=== PATIENT | male | born 1960 | race Caucasian/White ===

== ENCOUNTER 2019-05-18 20:49 | Inpatient (IN) | payer OTHER ==
[~2019-05-18 20:49] MED LIST: ISOVUE-370 76%-LOCM 1 ML ONE
[2019-05-18] MEDS ORDERED: Norepinephrine 8 MG in Dextrose 5% in Water 242 ML IVPB PRN (21:09)
[2019-05-18 21:10] LABS: #Eosinphils 0.1 thou/uL (0.0-0.7); #Lymphocytes 1.5 thou/uL (1.20-3.40); #Monocytes 0.9 thou/uL (0.11-0.59); #Neutrophils 10.2 thou/uL (1.40-6.50); %Basophils 0.4 % (0.0-1.0); %Eosinophils 0.9 % (0.0-10.0); %Lymphocytes 12.1 % (21.0-51.0); %Monocytes 6.9 % (0.0-10.0); %Neutrophils 79.7 % (42.0-75.0); Hemoglobin 18.5 g/dL (14.0-18.0); Mean Corpuscular HGB CONC 34.4 g/dL (32.0-36.0); Mean Platelet Volume 8.6 fL (7.4-10.4); Platelet Count 247 thou/uL (130-400); RBC Distribution Width 11.9 % (11.5-14.5); Red Blood Cell (RBC) Count 5.78 mill/uL (4.70-6.10); White Blood Cell (WBC) Count 12.8 thou/uL (4.8-10.8)
--- NOTE | 2019-05-18 21:13 | RAD ---
Portable frontal chest radiograph: 05/18/2019 COMPARISON: None HISTORY: Hanging FINDINGS: Supine imaging limits assessment for pneumothorax and pleural fluid. There is gaseous distention of the stomach. Endotracheal tube projects over the tracheal air column, terminating at the level of the clavicular heads. There is dense opacity in the perihilar and infrahilar region on the right suggesting infiltrate or v olume loss. Left lung appears clear. IMPRESSION: Endotracheal tube in place. Increased density in the right perihilar region and infrahila r region for which follow-up imaging is advised.
[2019-05-18 21:22] LABS: Actual Bicarbonate (HCO3a) 18.2 mEq/L (22-28); Analyzer IN Cardio ER; Base Excess (BEa) -5.9 mEq/L (-2.0 to +3.0); CO2 Tension 32.5 mmHg (35.0-45.0); Calcium, Ionized 1.09 mmol/L (1.12-1.30); Carboxyhemoglobin (COHb) 0.2 gm% (0.0-3.0); Hemoglobin (Hb) 16.9 g/dL (14.0-18.0); O2 Tension (PaO2) 99.8 mmHg (80.0-100.0); Potassium - ABG Lab 3.25 mmol/L (3.70-5.30); pH, Arterial 7.37 (7.35-7.45)
--- NOTE | 2019-05-18 21:23 | CT ---
Head CT without contrast: 05/18/2019 COMPARISON: None HISTORY: Hanging TECHNIQUE: Axial CT imaging at 5 mm intervals from vertex through skull base without contrast FINDINGS: The imaged paranasal sinuses and mastoid air cells are well aerated. No displaced calvarial fracture is seen. No intracranial hemorrhage, midline shift, mass effect, or ventricular enlargement. IMPRESSION: No acute findings. Follow-up MRI may be beneficial if there is clinical concern for anoxi a.
[2019-05-18 21:24] LABS: ALV-art Gradient 287.375 (0-20); Puncture Site LRA
--- NOTE | 2019-05-18 21:27 | CT ---
Cervical spine CT without contrast: 05/18/2019 COMPARISON: None HISTORY: Pain TECHNIQUE: Axial CT imaging at 2.5 mm intervals through the cervical spine with coronal and sagittal reformatted imaging FINDINGS: The C1 ring is intact. The dens, occipital condyles, atlantoaxial interspace, cervicothorac ic junction, and craniocervical junction demonstrate no acute findings. There is prominent degenerative change at the atlantoaxial interspace. There is right-sided facet curt nt fusion at C2-3. There is disc space narrowing with degenerative endplate change and posterior osteophyte formation at C5-C6 and C6-7. No acute fracture or evidence of dislocation is seen involving the cervical spine. Endotracheal tube present. Imaged lung apices demonstrate no acute findings. IMPRESSION: Cervical spine degenerative change with no acute fracture or evidence of dislocation. Results of head CT and cervical spine CT called to Dr. Alaniz at 9:24 PM 05/18/2019.
--- NOTE | 2019-05-18 21:34 | CT ---
CT angiogram neck: 05/18/2019 COMPARISON: None HISTORY: Hanging TECHNIQUE: Axial CT imaging at 1.25 mm intervals through the neck with IV contrast using CT angiogram protocol. Coronal and sagittal 3-D reformatted imaging obtained. FINDINGS: The visualized brain parenchyma appears grossly unremarkable. The imaged paranasal sinuses and mastoid air cells appear well aerated. The retroantral fat and the parapharyngeal fat is clear bilaterally. The parotid glands and submandibular glands appear grossly unremarkable. Endotracheal tube present. There is fluid within the posterior nasopharynx. The hyoid bone, thyroid cartilage, and cricoid carti parrish appears grossly unremarkable as does the thyroid gland. There is endotracheal debris adjacent to the endotracheal tube distally. There is mild increased density in the posterior medial right upper lobe. The origin of the innominate artery, right subclavian artery, right common carotid artery, left subcl saloni artery, and left common carotid artery unremarkable. Bilateral vertebral arteries are patent. On the basis of NASCET criteria, there is no hemodynamically significant stenosis involving the commo n carotid artery or internal carotid artery on either side. No lymphadenopathy is noted within the neck. No acute osseous abnormality. IMPRESSION: Arterial structures of the neck are patent. Results called to Dr. Alaniz at 9:30 PM 05/18.
[2019-05-18] MEDS ORDERED: fentaNYL Citrate/PF 2,000 MCG in Sodium Chloride 0.9% 60 ML IV SCH (21:39)
[2019-05-18 21:43] LABS: INR-International Normal Ratio 1.2; PTT 29.2 SEC (22.9-36.1); Prothrombin Time 14.8 SEC (12.0-14.7)
[2019-05-18 21:55] LABS: ALT (SGPT) 52 U/L (8-55); AST (SGOT) 50 U/L (5-34); Albumin 3.5 g/dL (3.5-5.0); Alkaline Phosphatase 89 U/L (40-150); Anion Gap 20 mmol/L (10-20); BUN (Urea Nitrogen) 16 mg/dL (8.4-25.7); Bilirubin, Total 0.4 mg/dL (0.2-1.2); Calc. Creatinine Clearance 0 mL/min (70-130); Calcium 8.8 mg/dL (7.8-10.44); Carbon Dioxide 10 mmol/L (22-29); Chloride 108 mmol/L (98-107); Estimated GFR-MDRD 57; Globulin 3.3 g/dL (2.4-3.5); Glucose 152 mg/dL (70-105); Lipase 67 U/L (8-78); Potassium 3.7 mmol/L (3.5-5.1); Protein, Total 6.8 g/dL (6.0-8.3); Sodium 134 mmol/L (136-145)
--- NOTE | 2019-05-18 22:04 | HP ---
CHIEF COMPLAINT: Found down at alf. HISTORY OF PRESENT ILLNESS: This is a 58-year-old male, reportedly found with a shoe string tied around his neck, head suspended 4 feet off the ground at the alf. He was gurgling and coughing, but no other neurologic signs at the scene. He had a pulse. He was intubated. He received rocuronium and etomidate and Versed prior to arrival. On arrival, ET tube was checked for placement by ER physician and found to be in good position. His blood pressures were in the 80s systolic on presentation, but he responded to fluids. He had a chest x-ray revealing no obvious pneumothorax. He was taken to the CT scan. CT scan shows no significant surgical brain bleed. No obvious C-spine fracture. CT angio of the neck shows no obvious vessel injury. He is being admitted to the trauma service. 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 PAST SURGICAL HISTORY: He has an unknown except for the packed small abscess to his left upper inner thigh with no significant obvious ongoing infection. ALLERGIES: NO KNOWN DRUG ALLERGIES. SOCIAL HISTORY: He is prisoner currently, otherwise unknown. MEDICATIONS: Medications taken daily include, 1. Dapsone. 2. Isentress. 3. Lamivudine. 4. Sulfa. 5. Tenofovir. REVIEW OF SYSTEMS: Unable to obtain. PHYSICAL EXAMINATION: VITAL SIGNS: His blood pressure is 110/78 after 2 L of crystalloids. HEENT/NECK: Head, there is no obvious scalp or facial trauma. There are red wooten to the neck circumferentially without expanding hematoma or bulla formation. The C-collar is left in place. His pupils are nonreactive. No obvious other orofacial trauma. CHEST: Coarse breath sounds. HEART: Regular rate. ABDOMEN: Soft and nontender. No trauma. EXTREMITIES: No obvious upper or lower extremity trauma. Peripheral pulses are intact. He does have a packed open wound to his left upper inner thigh without significant obvious ongoing infection. DIAGNOSTIC STUDIES: CT head shows no acute traumatic injury. CT C-spine and CTA show no acute traumatic injury. ASSESSMENT: This 58-year-old male presents after hanging with no significant obvious head bleed and no obvious arterial injury on CTA. PLAN: Plan is to admit to the ICU. Monitor for neuro change. Trauma Team to admit. Job ID: [id number]
[2019-05-18] MEDS ORDERED: Morphine 2 MG/ML SYRINGE SLOW IVP PRN (23:15)
[2019-05-18] MEDS ORDERED: Propofol BOLUS 1,000 MG/100 ML VIAL IV PRN (23:15)
[2019-05-18] MEDS ORDERED: DISCONTINUE PREVIOUS NARCOTIC PAIN MEDICATIONS AND BENZODIAZEPINES FS SCH (23:15)
[2019-05-18] MEDS ORDERED: Propofol 1,000 MG/100 ML VIAL IV PRN (23:15)
[2019-05-18] MEDS ORDERED: Fentanyl BOLUS 250 ML IVPB PRN (23:15)
[2019-05-18 23:35] VITALS: BP 123/81
[2019-05-18] MEDS ORDERED: Ventilator Sedation Protocol 1 EACH FS SCH (23:38)
[2019-05-18] MEDS ORDERED: Ondansetron ODT 4 MG TAB PO PRN (23:38)
[2019-05-18] MEDS ORDERED: Dextrose 50% Abboject 50 ML SYRINGE SLOW IVP PRN (23:38)
[2019-05-18] MEDS ORDERED: Dextrose 5% in Water 1,000 ML IV PRN (23:38)
[2019-05-18] MEDS ORDERED: Ondansetron PF 4 MG/2 ML Vial IVP PRN (23:38)
[2019-05-19] MEDS: Sodium Chloride 0.9% 1,000 ML IV SCH ×3 (00:20→18:26)
[2019-05-19] MEDS: Dexamethasone 4 MG in Sodium Chloride 0.9% 50 ML IVPB SCH ×3 (00:20→16:05)
[2019-05-19 00:26] VITALS: BMI 23.1
[2019-05-19] MEDS: Lorazepam 2 MG/ML VIAL SLOW IVP PRN ×2 (01:32→03:30)
[2019-05-19] MEDS ORDERED: levETIRAcetam In NaCl (Iso-Os) 1,000 MG in Premix Bag 1 BAG IVPB SCH (03:45)
[2019-05-19] MEDS ORDERED: Acetaminophen 1,000 MG in Premix Bag 1 BAG IVPB PRN (04:29)
[2019-05-19 04:53] LABS: Band 1 % (5-11); Hemoglobin 18.7 g/dL (14.0-18.0); Lymphocytes 2 % (21-51); MDiff Complete? YES; Mean Corpuscular HGB CONC 34.1 g/dL (32.0-36.0); Mean Corpuscular Hemoglobin 31.2 pg (27.0-31.0); Mean Corpuscular Volume 91.6 fL (78.0-98.0); Mean Platelet Volume 8.1 fL (7.4-10.4); Monocytes 2 % (0-10); Neutrophil 95 % (42-75); Platelet Count 302 thou/uL (130-400); Platelet Morphology Comment Appears Adequate; RBC Distribution Width 11.9 % (11.5-14.5); RBC Morphology Normal; Red Blood Cell (RBC) Count 6.01 mill/uL (4.70-6.10); White Blood Cell (WBC) Count 22.3 thou/uL (4.8-10.8)
[2019-05-19 07:21] LABS: Actual Bicarbonate (HCO3a) 20.3 mEq/L (22-28); Base Excess (BEa) -3.3 mEq/L (-2.0 to +3.0); CO2 Tension 33.4 mmHg (35.0-45.0); Calcium, Ionized 1.18 mmol/L (1.12-1.30); Carboxyhemoglobin (COHb) 0.3 gm% (0.0-3.0); Hemoglobin (Hb) 18.6 g/dL (14.0-18.0); O2 Tension (PaO2) 98.3 mmHg (80.0-100.0)
[2019-05-19 07:22] LABS: Puncture Site RRA
--- NOTE | 2019-05-19 07:59 | CT ---
PRELIMINARY REPORT/[facility]/EMERGENCY AFTER HOURS PROCEDURE: PROCEDURE INFORMATION: Exam: CT Head Without Contrast Exam date and time: 05/19/2019 4:41 AM Clinical history: 58 years old, male; Injury or trauma; Initial encounter; Patient HX: F/u possible anoxic injury S/P hanging. PT constantly having tremors TECHNIQUE: Imaging protocol: Computed tomography of the head without contrast. COMPARISON: CT Brain WO Con 05/18/2019 9:08 PM FINDINGS: Brain: Normal. No hemorrhage. Unremarkable white matter. No mass effect. Ventricles: Normal. No ventriculomegaly. Bones/joints: Unremarkable. No acute fracture. Sinuses: Visualized sinuses are unremarkable. No fluid levels. Mastoid air cells: Visualized mastoid air cells are well aerated. Soft tissues: Unremarkable. IMPRESSION: No acute intracranial abnormality. Thank you for allowing us to participate in the care of your patient. Dictated and Authenticated by: Madi Martinez MD 05/19/2019 4:56 AM Central Time ([place] & [place]) FINAL REPORT: CT BRAIN: PROVIDED CLINICAL HISTORY: Anoxic injury COMPARISON: 05/18/2019 FINDINGS/IMPRESSION: Agree with the preliminary interpretation given by SANGITA. Transcribed Date/Time: 05/19/2019 8:04 AM
[2019-05-19] MEDS: Famotidine 20 MG TAB PO SCH ×2 (08:12→21:01)
[2019-05-19 09:11] LABS: #Lymphocytes 0.8 thou/uL (1.20-3.40); #Monocytes 0.7 thou/uL (0.11-0.59); #Neutrophils 11.4 thou/uL (1.40-6.50); %Basophils 0.3 % (0.0-1.0); %Eosinophils 0.3 % (0.0-10.0); %Lymphocytes 6.1 % (21.0-51.0); %Monocytes 5.1 % (0.0-10.0); %Neutrophils 88.2 % (42.0-75.0); Hemoglobin 16.4 g/dL (14.0-18.0); Mean Corpuscular Hemoglobin 31.6 pg (27.0-31.0); Mean Platelet Volume 8.2 fL (7.4-10.4); Platelet Count 221 thou/uL (130-400); RBC Distribution Width 11.9 % (11.5-14.5)
[2019-05-19 09:34] LABS: Anion Gap 11 mmol/L (10-20); BUN (Urea Nitrogen) 16 mg/dL (8.4-25.7); Calc. Creatinine Clearance 91 mL/min (70-130); Carbon Dioxide 18 mmol/L (22-29); Chloride 112 mmol/L (98-107); Estimated GFR-MDRD 84; Glucose 127 mg/dL (70-105); Potassium 4.4 mmol/L (3.5-5.1); Sodium 137 mmol/L (136-145)
[2019-05-19] MEDS ORDERED: Calcium Chloride 13.6 MEQ in Sodium Chloride 0.9% 100 ML IVPB SCH (09:45)
--- NOTE | 2019-05-19 12:56 | PRG ---
DATE OF SERVICE: 05/19/2019 SUBJECTIVE: Mr. Sykes had a followup CT this morning after having a likely seizure that showed no obvious intraabdominal bleed or abnormality. His CT of his head and CT of his neck were all normal for no acute injuries. He had not been following commands or had any higher level of neurologic function. However, just now he did have some appropriate movement of his left arm. He opens his eyes and track to voice. OBJECTIVE: VITAL SIGNS: His blood pressure is 111/60, off Levophed; his pulse is 82; O2 sats are 100% on FiO2 of 40% vent. Urine output is 310 so far today, was 1420 last night. CHEST: Coarse. ABDOMEN: Soft and nontender. HEART: Regular rate. LABORATORY DATA: White blood cell count is 13 and hemoglobin is 16. Sodium 137, potassium 4.4, and creatinine is 0.93. ASSESSMENT: Asphyxiation by hanging with mild neurologic improvement. PLAN: Continue on the ventilator at this time. Continue Levophed as needed. Job ID: [id number]
--- NOTE | 2019-05-20 00:25 | PRG ---
DATE OF SERVICE: 05/19/2019 SUBJECTIVE: The patient remains on the critical care unit. He remains on full mechanical ventilatory support. He is status post hanging with asphyxiation and possible anoxic brain injury. Today, he is no longer on any vasopressor support and he has had significant improvement in his mental status. PHYSICAL EXAMINATION: VITAL SIGNS: Stable. The patient had a max temperature of 100.2 this evening. GENERAL: The patient is resting in bed. He is awake. He is following verbal commands. His Malvin Coma Scale is 11, E4 V1T M6. HEENT: Unremarkable. The patient still has nasogastric and endotracheal tube in place. NECK: Poultney collar is in place. Trachea is midline. No JVD. CHEST: Has scant scattered rhonchi bilaterally. HEART: Regular rate and rhythm. ABDOMEN: Soft, nontender with active bowel sounds. EXTREMITIES: Neurovascularly intact x4. ASSESSMENT/PLAN: 1. Status post hanging. 2. Asphyxiation, improved. PLAN: Plan will be to continue ventilatory support at this time. The patient will likely be able to be extubated tomorrow. We will continue to monitor and provide supportive care and evaluate once again, the patient is extubated. Job ID: [id number]
[2019-05-20] MEDS: Sodium Chloride 0.9% 1,000 ML IV SCH ×2 (04:08→13:00)
[2019-05-20 05:11] LABS: #Basophils 0.1 thou/uL (0.0-0.2); #Lymphocytes 0.9 thou/uL (1.20-3.40); #Monocytes 0.9 thou/uL (0.11-0.59); #Neutrophils 14.6 thou/uL (1.40-6.50); %Basophils 0.4 % (0.0-1.0); %Eosinophils 0.3 % (0.0-10.0); %Lymphocytes 5.3 % (21.0-51.0); %Monocytes 5.6 % (0.0-10.0); %Neutrophils 88.5 % (42.0-75.0); Hemoglobin 15.7 g/dL (14.0-18.0); Mean Corpuscular Hemoglobin 31.4 pg (27.0-31.0); Mean Corpuscular Volume 92.2 fL (78.0-98.0); Mean Platelet Volume 8.4 fL (7.4-10.4); Platelet Count 214 thou/uL (130-400); Red Blood Cell (RBC) Count 5.01 mill/uL (4.70-6.10); White Blood Cell (WBC) Count 16.5 thou/uL (4.8-10.8)
[2019-05-20 05:36] LABS: Anion Gap 11 mmol/L (10-20); BUN (Urea Nitrogen) 14 mg/dL (8.4-25.7); Calc. Creatinine Clearance 103 mL/min (70-130); Calcium 9.1 mg/dL (7.8-10.44); Carbon Dioxide 22 mmol/L (22-29); Chloride 106 mmol/L (98-107); Estimated GFR-MDRD Greater than 90; Glucose 136 mg/dL (70-105); Magnesium 1.7 mg/dL (1.6-2.6); Phosphorus 2.7 mg/dL (2.3-4.7); Potassium 3.4 mmol/L (3.5-5.1); Sodium 136 mmol/L (136-145)
[2019-05-20] MEDS ORDERED: Potassium Phosphate 15 MMOL in Sodium Chloride 0.9% 250 ML 250 ML IVPB SCH (07:15)
--- NOTE | 2019-05-20 07:42 | RAD ---
EXAM: Portable chest PROVIDED CLINICAL HISTORY: Evidence for aspiration COMPARISON: 05/18/2019 FINDINGS: Endotracheal tube is again noted in similar position. Enteric catheter has been placed, tip of which overlies the left upper quadrant. The cardiac and mediastinal silhouette is unchanged in appearance. No focal consolidation, pleural fluid or pneumothorax evident. IMPRESSION: No evidence for an acute cardiopulmonary process.
[2019-05-20 08:09] LABS: Actual Bicarbonate (HCO3a) 21.7 mEq/L (22-28); Base Excess (BEa) 0.8 mEq/L (-2.0 to +3.0); CO2 Tension 26.1 mmHg (35.0-45.0); Calcium, Ionized 1.17 mmol/L (1.12-1.30); Hemoglobin (Hb) 15.5 g/dL (14.0-18.0); O2 Tension (PaO2) 100.7 mmHg (80.0-100.0); Potassium - ABG Lab 3.56 mmol/L (3.70-5.30); pH, Arterial 7.54 (7.35-7.45)
[2019-05-20 08:11] LABS: Puncture Site RRA
[2019-05-20 08:12] LABS: ALV-art Gradient 80.575 (0-20)
[2019-05-20] MEDS ORDERED: Pantoprazole 40 MG VIAL IVP SCH (09:00)
[2019-05-20 09:13] LABS: Actual Bicarbonate (HCO3a) 23.9 mEq/L (22-28); Base Excess (BEa) 1.7 mEq/L (-2.0 to +3.0); CO2 Tension 30.8 mmHg (35.0-45.0); Calcium, Ionized 1.16 mmol/L (1.12-1.30); Carboxyhemoglobin (COHb) 1.2 gm% (0.0-3.0); Potassium - ABG Lab 3.69 mmol/L (3.70-5.30); Puncture Site RRA; pH, Arterial 7.51 (7.35-7.45)
--- NOTE | 2019-05-20 09:44 | CON ---
DATE OF CONSULTATION: 05/20/2019 CONSULTING PHYSICIAN: Hospitalist Service. IMPRESSION: Strangulation with transient encephalopathy, appears to be following commands appropriately, although I cannot assess his short-term memory until he is extubated. PLAN: Extubated as able. HISTORY OF PRESENT ILLNESS: Mr. Sykes is a 58-year-old man, who is an inmate in one of the units. They found him hanging by a shoe string around his neck. He was cut down and brought in for treatment. He was intubated and admitted into the ICU. Initially, he was unresponsive. As the evening progressed, he became more and more responsive and started following commands. He is maintained on a bit of propofol and fentanyl sedation to keep him calm. His extubation is pending. PAST MEDICAL HISTORY: Otherwise, unknown. FAMILY HISTORY: Unknown. ALLERGIES: NONE REPORTED. REVIEW OF SYSTEMS: Not obtainable. PHYSICAL EXAMINATION: VITAL SIGNS: Blood pressure 97/53; pulse 70, in a sinus rhythm; saturations 100%; and respirations 15. HEENT: Pupils are equal and reactive. Conjunctivae are clear. He is orally intubated. Cranium, normocephalic and atraumatic. NECK: Supple. EXTREMITIES: No cyanosis or edema. NEUROLOGIC: He is awake and cooperative. He follows commands appropriately. Moves all 4 extremities well. 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 Sensation is intact. No abnormal movements were seen. SUMMARY: This is a middle-age man with transient encephalopathy secondary to anoxia, doing remarkably well at this point. I agree with your treatment plan, be available for further questions if there is any other difficulties that developed. Job ID: [id number]
--- NOTE | 2019-05-20 12:41 | PRG ---
DATE OF SERVICE: 05/20/2019 SUBJECTIVE: Mr. Sykes is doing well. He is extubated. He is able to hold a conversation. Awake and alert and oriented. OBJECTIVE: VITAL SIGNS: Stable. CHEST: Coarse breath sounds. HEART: Regular rate. ABDOMEN: Soft, nontender. NECK: Examination of his neck reveal improved, skin changes from the attempted hanging. His anterior and posterior neck is nontender on exam. He has no tenderness to flexion or extension. His C-collar is removed. ASSESSMENT: Attempted hanging, doing well now, extubated. Following commands. Neurologically intact. PLAN: Start diet, advance as tolerated. He will likely need a disposition to the psychiatric unit once he is discharged from here. Case Management can start working on that tomorrow. Job ID: [id number]
[2019-05-20] MEDS ORDERED: Acetaminophen 500 MG TAB PO PRN (20:13)
[2019-05-20] MEDS ORDERED: Ibuprofen 600 MG TAB PO PRN (20:13)
[2019-05-21] MEDS: Sodium Chloride 0.9% 1,000 ML IV SCH (02:00)
--- NOTE | 2019-05-21 02:55 | PRG ---
DATE OF SERVICE: 05/20/2019 SUBJECTIVE: The patient remains in the critical care unit. He was extubated this morning. He has not had any issues overnight. He is tolerating a diet at this time. PHYSICAL EXAMINATION: VITAL SIGNS: Stable. The patient is afebrile. GENERAL: The patient is resting comfortably in bed. He is awake, alert, oriented, he does not recall his events. His Malvin Coma Scale is 15. HEENT: Unremarkable. The patient speaks clearly. NECK: Nontender. Trachea is midline. Abrasion is noted consistent with a ligature ash. The C-collar has been removed. LUNGS: Clear to auscultation bilaterally. HEART: Regular rate and rhythm. ABDOMEN: Soft, nontender with active bowel sounds. EXTREMITIES: Neurovascularly intact x4. ASSESSMENT/PLAN: 1. Status post hanging. 2. Asphyxiation, resolved. PLAN: Plan will be to continue supportive care. Likely be able to be moved to the surgical floor tomorrow. We will discuss placement and [facility] evaluation. The patient was evaluated by Neurology today. They agree with our current plan, but Dr. Pack did not comment on the need for continued Keppra in view of the patient's previous 2 seizure activities post hanging. Job ID: [id number]
[2019-05-21 05:58] LABS: Anion Gap 11 mmol/L (10-20); BUN (Urea Nitrogen) 10 mg/dL (8.4-25.7); Calc. Creatinine Clearance 112 mL/min (70-130); Calcium 8.6 mg/dL (7.8-10.44); Carbon Dioxide 24 mmol/L (22-29); Chloride 103 mmol/L (98-107); Estimated GFR-MDRD Greater than 90; Glucose 97 mg/dL (70-105); Magnesium 1.8 mg/dL (1.6-2.6); Phosphorus 2.3 mg/dL (2.3-4.7); Potassium 3.6 mmol/L (3.5-5.1); Sodium 134 mmol/L (136-145)
[2019-05-21] MEDS ORDERED: Raltegravir Potassium 400 MG TAB PO SCH (09:00)
[2019-05-21] MEDS ORDERED: levETIRAcetam 500 MG TAB PO SCH (09:00)
--- NOTE | 2019-05-21 14:13 | PRG ---
DATE OF SERVICE: 05/21/2019 SUBJECTIVE: Mr. Sykes is a 58-year-old inmate post injury day #3, status post attempted suicide by hanging. The patient arrived with acute respiratory failure. He was successfully extubated yesterday. This morning, he is awake and alert. Moving all extremities and following commands. He denies any dyspnea or pain. He has no hoarseness. OBJECTIVE: VITAL SIGNS: Include blood pressure is 116/71, pulse is 100, respiratory rate is 23, maximum temperature in the last 24 hours is 99.4 degrees Fahrenheit, and oxygen saturation is 98% on room air. HEENT: Pupils are equally round and reactive to light and accommodation. HEART: Reveals regular rate and rhythm. No murmurs or gallops auscultated. LUNGS: Clear to auscultation bilaterally. Breathing, regular and nonlabored. ABDOMEN: Soft, nontender, and nondistended. NEUROLOGIC: Reveals no focal deficits present. LABORATORY FINDINGS: Today include metabolic profile; sodium 134, potassium 3.6 , chloride is 103, bicarb is 24, BUN 10, creatinine 0.75, glucose is 97, magnesium 1.8, and phosphorus 2.3. IMPRESSION: 1. Post injury #3, status post attempted suicide by hanging. 2. Acute hypomagnesemia. 3. Acute hypophosphatemia. 4. Acute hyponatremia. PLAN: 1. Free water restriction. 2. Correct abnormal electrolytes. 3. Increase activity per Physical and Occupational Therapy. 4. Anticipate transfer to inpatient psychiatry within the correctional institution. Patient is otherwise stable for discharge to [facility] or back to his unit with suicide watch/ Direct observation pending bed availability at [facility] . Job ID: [id number] MTDD
[2019-05-21] MEDS ORDERED: Acetaminophen 325 MG TAB PO PRN (14:20)
--- NOTE | 2019-05-21 14:48 | DIS ---
DATE OF ADMISSION: 05/18/2019 DATE OF DISCHARGE: 05/21/2019 DISCHARGING PHYSICIAN: Cong Slade DO ADMITTING DIAGNOSES: 1. Attempted suicide by hanging. 2. Posttraumatic acute respiratory failure. DIAGNOSES ON DISCHARGE: 1. Attempted suicide by hanging. 2. Resolved acute respiratory failure. 3. Posttraumatic seizure. MAINTENANCE ENGINEER OIL FIELD: Dr. Jaxon Pack with Neurology. HISTORY AND HOSPITAL COURSE: This is a 58-year-old man, an inmate of a correctional facility, who attempted suicide by hanging on 05/18/2019. The patient suffered acute respiratory failure. He was intubated and placed on mechanical ventilator support. He developed what appeared to be a hypoxic encephalopathic seizure. He required benzodiazepines at the time of initial admission. He has been on anti-seizure medications. He has had no seizure activities over the last 48 hours. The patient was successfully extubated yesterday and has remained hemodynamically and neurologically stable since. This morning, he is awake and alert. His Malvin Coma Scale is 15. He is complaining of residual left groin pain corresponding to an area of cellulitis, which is being managed with local wound care. He denies any headaches, photophobia, sore throat, neck or chest pain. He is tolerating general diet, having normal urinary function. His vital signs have been stable over the last 48 hours. His pain is adequately controlled as he received only Tylenol or ibuprofen for the groin pain. He has maximized hospital benefit. We attempted to transfer him to [facility] for inpatient Psychiatry. [facility] recommended the patient be returned to his unit with direct observation and suicide watch until bed is available at [facility]. From the standpoint of this hospitalization, the patient has no further indication for acute inpatient hospital admission. DISCHARGE INSTRUCTIONS: He will therefore be discharged back to his correctional facility with the following instructions: 1. Direct patient observation and suicide precautions until he has been evaluated at [facility]. 2. He is to resume all pre-hospitalization medications as previously prescribed by his primary physicians. 3. Additionally, he is to continue with Keppra 500 mg p.o. b.i.d. until he has been evaluated and released by neurologist at [facility]. 4. He requires no further followup from this Trauma Surgery standpoint except for as needed. Above instructions were explained to the patient, who indicates understanding of the information given. Job ID: [id number]
[2019-05-21 16:17] VITALS: TEMP 98.1
== END 2019-05-21 18:52 | DRG 208 ==
LOC: ERS 20:49 → CCU 23:07
PROVIDERS: ADMIT Surgery; ATTEND Surgery
PROC: 0BH17EZ Insertion of Endotracheal Airway into Trachea, Via Natural or Artificial Opening (ICD-10-PCS; principal; 2019-05-18)
PROC: 5A1945Z Respiratory Ventilation, 24-96 Consecutive Hours (ICD-10-PCS; 2019-05-18)
DX: J96.00 Acute respiratory failure, unspecified whether with hypoxia or hypercapnia (principal); T71.162A Asphyxiation due to hanging, intentional self-harm, initial encounter; R56.1 Post traumatic seizures; G93.1 Anoxic brain damage, not elsewhere classified; E87.1 Hypo-osmolality and hyponatremia; I10 Essential (primary) hypertension; K21.9 Gastro-esophageal reflux disease without esophagitis; Z21 Asymptomatic human immunodeficiency virus [HIV] infection status; E83.42 Hypomagnesemia; E83.39 Other disorders of phosphorus metabolism
CPT/HCPCS: 36415; 70450; 70498; 71045; 72125; 80048; 80053; 82533; 82805; 83690; 83735; 84100; 85025; 85610; 85730; 87070; 87077; 87186; 87205; 94003; 96361; 96365; C9113; G0390; J0131; J1100; J1953; J2060; J2704; J3010; J3490; J7050; J7070; P9045; Q9966